=== PATIENT | female | born 1995 | race African-American/Black ===

== ENCOUNTER 2019-01-24 15:11 | Emergency (ER) | payer MEDICAID ==
[~2019-01-24] VITALS: Ht 165.1 cm; Wt 181.0 kg
[2019-01-24 16:54] VITALS: BP 157/102
[2019-01-24] MEDS ORDERED: SODIUM CHLORIDE 0.9% 500 ML IV ONE (17:00)
[2019-01-24 17:26] LABS: BASOPHILS % 1.1 % (0.0-2.0); HEMATOCRIT. 39.4 % (36.0-48.0); HEMOGLOBIN. 12.5 g/dL (12.0-16.0); MEAN CORPUSCULAR HEMOGLOBIN 22.8 pg (28.0-32.0); MEAN CORPUSCULAR VOLUME 72.1 fL (81.0-99.0); MEAN PLATELET VOLUME 7.6 fl (7.4-10.4); MONOCYTES % 7.8 % (2.0-8.0); NEUTROPHILS % 42.1 % (40.0-76.0); PLATELET 385 x1000/uL (130-400); RED BLOOD CELL COUNT 5.47 mill/uL (4.2-5.4); RED CELL DISTRIBUTION WIDTH 17.2 % (11.6-14.6)
[2019-01-24 17:31] LABS: CHLORIDE 107 mEq/L (98-107)
[2019-01-24 17:42] LABS: B-HCG QUANTITATIVE < 1 mIU/mL (<3)
[2019-01-24 18:09] LABS: CLARITY URINE CLEAR (CLEAR); COLOR URINE ORANGE (YELLOW); KETONES URINE NEGATIVE (NEGATIVE); LEUKOCYTE ESTERASE URINE NEGATIVE (NEGATIVE); NITRITE URINE NEGATIVE (NEGATIVE); OCCULT BLOOD URINE 3+ (NEGATIVE); PH URINE 6.5 (4.5-8.0); PROTEIN URINE TRACE (NEGATIVE); SPECIFIC GRAVITY URINE 1.023 (1.005-1.030)
[2019-01-24 18:17] LABS: *BARBITURATES SCREEN URINE NEGATIVE (NEGATIVE)
[2019-01-24 18:18] LABS: *AMPHETAMINES SCREEN URINE NEGATIVE (NEGATIVE); *BENZODIAZEPINES SCREEN URINE NEGATIVE (NEGATIVE); *COCAINE SCREEN URINE NEGATIVE (NEGATIVE); CANNABINOID URINE SCREEN NEGATIVE (NEGATIVE); METHADONE URINE SCREEN NEGATIVE (NEGATIVE); OPIATES URINE SCREEN NEGATIVE (NEGATIVE); PHENCYCLIDINE URINE SCREEN NEGATIVE (NEGATIVE)
== END 2019-01-24 19:30 | disposition home or self-care (01) ==
LOC: ER 15:11
DX: N83.202 Unspecified ovarian cyst, left side (principal); N83.201 Unspecified ovarian cyst, right side; N17.0 Acute kidney failure with tubular necrosis; N93.8 Other specified abnormal uterine and vaginal bleeding; R93.89 Abnormal findings on diagnostic imaging of other specified body structures; E86.0 Dehydration; N39.0 Urinary tract infection, site not specified; R80.9 Proteinuria, unspecified; R31.9 Hematuria, unspecified; E66.01 Morbid (severe) obesity due to excess calories; M43.9 Deforming dorsopathy, unspecified; Z68.44 Body mass index [BMI] 60.0-69.9, adult; Z87.09 Personal history of other diseases of the respiratory system
CPT/HCPCS: 36415; 76830; 76856; 80053; 80305; 81003; 84702; 85025; 93005; 99284; J7040; Z7610